=== PATIENT | male | born 1960 | race Caucasian/White ===

== ENCOUNTER 2016-10-25 12:00 | Inpatient (IN) | payer OTHER ==
--- NOTE | ~2016-10-25 | DS ---
Unit #: [id number] #: [id number] Patient: SANDY MORSE [id number] [facility] [address] [place] [address] [id number] MR#: [id number] NAME: SANDY MORSE ROOM: [facility] Age: 56 Sex: M Admission Date: 10/25/2016 : 1960 Discharge Date: 10/31/2016 Attending Physician: Star Diana M.D. Primary Care Physician: Primary Care Physician No DISCHARGE SUMMARY REASON FOR ADMISSION Mr. Morse is a 56-year-old man, who presented complaining of increasing hopelessness and helplessness following the of his mother 3 years ago this month. He had relapsed on substances and was unable to contract for safety. He was admitted for stabilization. DIAGNOSTIC STUDIES LABORATORY RESULTS: Please see hospital chart. HOSPITAL COURSE The patient was admitted and placed on the opioid detox protocol. He declined initiation of an antidepressant, but participated appropriately in dual diagnosis groups and activities and his suicidal ideation resolved during the weekend after his initial admission. He was able to contract for safety on the date of discharge, having completed detox with no significant problems. DISCHARGE DIAGNOSES AXIS I: Opioid dependence with withdrawal, uncomplicated; amphetamine abuse; depressive disorder, not otherwise specified. AXIS II: No diagnosis. AXIS III: History of migraine headaches. AXIS IV: AXIS V: DISCHARGE INSTRUCTIONS Follow up with CD-IOP at our facility and primary care physician. DISCHARGE MEDICATIONS None. CONDITION AT DISCHARGE Improved. PROGNOSIS Fair to good. DIET AND ACTIVITY Per primary care doctor. Dictated by... Unit #: [id number] #: [id number] Patient: SANDY MORSE En Floyd/kamron TD: 11/10/2016 03:04 JOB #: [id number] DISCHARGE SUMMARY Page 1 of 1 X Star Diana MD X DISCHARGE SUMMARY
--- NOTE | ~2016-10-25 | PN ---
Unit #: [id number] #: [id number] Patient: SANDY SANTIAGO [id number] [place] [address] [id number] MR#: [id number] NAME: SANDY SANTIAGO ROOM: 86 Age: 56 Sex: M Admission Date: 10/25/2016 : 1960 Attending Physician: Star Diana M.D. Admitting Physician: Star Diana M.D. Primary Care Physician: Primary Care Physician Nely FORBES NOTES DATE October 28, [address] Star Diana at [facility] DISCUSSION This patient was seen and assessed on October 28, 2016. Upon today's assessment, this patient was found abed, he currently reports no suicidal or homicidal ideation, and verbalizes no plan or intent. He reports medication compliance and still ahs complaints of novr-ny-upolvfix physical symptoms of withdrawal as evidenced by kxvf-jz-[id number] diffuse joint aches and pains, and nausea which he says is relieved by medications given to him for that. At this time he has no further complaints and we will continue to monitor him for suicidal ideation, and every fifteen minute checks for safety, and the detox protocol. Dictated by... CECE Garzon TD: 10/31/2016 07:13 JOB #: [id number] [facility] NOTES Page 1 of 1 X KIKI MCCORMICK PROGRESS NOTE
--- NOTE | ~2016-10-25 | PN ---
Unit #: [id number] #: [id number] Patient: SANDY SANTIAGO [id number] [facility] [address] [place] [address] [id number] MR#: [id number] NAME: SANDY SANTIAGO ROOM: 86 Age: 56 Sex: M Admission Date: 10/25/2016 : 1960 Attending Physician: Star Diana M.D. Admitting Physician: Star Diana M.D. Primary Care Physician: Primary Care Physician Nely CHAVES PROGRESS NOTES DATE OF SERVICE: 10/27/2016 DISCUSSION Upon today's assessment, the patient reports minimal to moderate signs and symptoms of heroin withdrawal at this time as evidenced by mild diffuse joint aches and pain and an upset stomach. He reports moderate depression, but denies suicidal ideation at this time. PLAN Continue to monitor the patient q.15 minutes for safety. Encourage participation in dual diagnosis groups, and continue to provide medications for withdrawal via the opioid detox protocol. Dictated by... Salima Mccormick APRN for En Floyd/kamron TD: 10/30/2016 23:34 JOB #: [id number] [facility] PROGRESS NOTES Page 1 of 1 X SALIMA MCCORMICK PROGRESS NOTE
--- NOTE | ~2016-10-25 | HP ---
Unit #: [id number] #: [id number] Patient: DILIP SANTIAGO [id number] [place] [address] [id number] MR#: [id number] NAME: DILIP SANTIAGO ROOM: 86 Age: 56 Sex: M Admission Date: 10/25/2016 : 1960 Attending Physician: Star Diana M.D. Admitting Physician: Star Diana M.D. Primary Care Physician: Primary Care Physician No HISTORY AND PHYSICAL HISTORY OF PRESENT ILLNESS Dilip is a 56 year old admitted to [facility] because of his polysubstance abuse which includes IV meth and heroin. PAST MEDICAL HISTORY 1. Long history of illicit substance abuse to include IV drugs. 2. History of migraines. PAST SURGICAL HISTORY Nothing reported. ALLERGIES Penicillin, Compazine. SOCIAL HISTORY Smokes 1 pack per day. Drinks alcohol on occasion. Admits to a long history of illicit substance abuse to include IV drugs. FAMILY HISTORY Medically noncontributory. REVIEW OF SYSTEMS CONSTITUTIONAL: No fever or chills. HEENT: Denies any sore throat, ear pain or runny nose. CARDIOVASCULAR: Denies chest pain, irregular heart rhythm or palpitations. CHEST: Denies shortness of breath or cough. No hemoptysis. GASTROINTESTINAL: Denies nausea, vomiting, diarrhea or chronic constipation. ENDOCRINE: Denies history of increased thirst or urination. No recent significant weight loss or gain. GENITOURINARY: Denies dysuria, frequency, or hematuria. SKIN: Denies any rashes. HEMATOLOGIC: Denies history of increased bleeding or bruising. MUSCULOSKELETAL: Denies any hot, swollen joints. No generalized muscle pain. NEUROLOGIC: Denies problems with vision or speech. No frequent, severe headaches. No numbness, tingling or weakness in any extremities. Denies loss of bladder or bowel control. CURRENT MEDICATIONS Detox protocol. PHYSICAL EXAMINATION Unit #: [id number] #: [id number] Patient: DILIP SANTIAGO GENERAL: Alert, well-nourished, in no apparent distress. VITAL SIGNS: Blood pressure 120/80, heart rate 77, respirations 16, temperature 98.6. WEIGHT: 196. HEIGHT: 6 feet 0 inches. SKIN: Warm and dry without rash or lesion. HEENT: Normocephalic. TMs not viewed. Oral and nasal passages clear. Conjunctivae clear. PERRLA. EOMs intact. NECK: Supple without lymphadenopathy or thyromegaly. HEART: Regular rate and rhythm without murmur. LUNGS: Clear. ABDOMEN: Soft, nontender. : Not done. EXTREMITIES: No evidence of cyanosis, clubbing or edema. Moves all without focal deficit. NEUROLOGICAL: Grossly within normal limits. Cranial Nerves: II: Visual garcia are intact. III, IV AND : Extraocular movements are intact. Pupils are equal, round and reactive to light. V: Facial sensation is grossly normal. VII: Facial movements and expression are normal. VIII: Auditory acuity grossly intact. IX, X: Uvula is midline. Phonation is normal. XI: Patient shrugs shoulders and turns head normally. XII: Tongue protrudes in the midline. Sensory and Motor Function: Sensory and motor sensation is grossly normal. Motor: moves all extremities well. Coordination: Gait is normal. Deep Tendon Reflexes: Intact. IMPRESSION Psychiatric admission. RECOMMENDATIONS PSYCHIATRIC: Per psychiatrist. MEDICAL: See no contraindication to participate in facility's activities. MEDICAL PROGNOSIS Good. MEDICAL CONDITION Stable. Dictated by... Mariama Lopez P.A.-C. for En Garcia/tamela TD: 10/25/2016 20:01 JOB #: [id number] Unit #: [id number] #: [id number] Patient: DILIP SANTIAGO HISTORY AND PHYSICAL Page 1 of 1 X Mariama Lopez HISTORY AND PHYSICAL
--- NOTE | ~2016-10-25 | PA ---
Unit #: [id number] #: [id number] Patient: SANDY MORSE [id number] [facility] [address] [place] [address] [id number] MR#: [id number] NAME: SANDY MORSE ROOM: 86 Age: 56 Sex: M Admission Date: 10/25/2016 : 1960 Date of Assessment: Attending Physician: Star Diana M.D. Admitting Physician: Star Diana M.D. Primary Care Physician: Primary Care Physician No PSYCHIATRIC ASSESSMENT DATE OF SERVICE 10/26/2016. INFORMANTS The patient, reliable. BÁRBARA, reliable. CHIEF COMPLAINT Suicidal ideation. HISTORY OF PRESENT ILLNESS Mr. Morse is a 56-year-old man, who reports this is the anniversary of his mother's birthday and says that he was with her when she . He has been doing drugs again including methamphetamines and heroin, and relapsed in July of this year. He had suicidal ideation and ongoing detox and was unable to contract for safety. He was readmitted for stabilization. PAST PSYCHIATRIC HISTORY Last admission in 2013 following the of his mother. He has a history of polysubstance dependence and depression. FAMILY PSYCHIATRIC HISTORY The patient reports an extensive family history of anxiety disorders. SOCIAL HISTORY The patient has completed his GED and works occasionally as a printer. He has one daughter, but currently stays alone. PAST MEDICAL HISTORY Significant for some chronic nausea. MEDICATIONS Please see MAR. ALLERGIES No known medication allergies. SUBSTANCE USE HISTORY The patient has a history of abusing opiates. MENTAL STATUS EXAMINATION The patient presented as a mildly disheveled man, who appeared his stated age. He was cooperative with the examination. His speech was spontaneous and easily understood. Musculoskeletal examination was calm. His mood Unit #: [id number] #: [id number] Patient: SANDY MORSE was depressed with a congruent affect. He was alert and fully oriented. Memory and concentration were fair. Thought processes were goal directed with no psychosis. He continued to report suicidal ideation and could not contract for safety out of the hospital. His insight and judgment were fair. His fund of knowledge and abstraction were fair. ASSETS AND LIABILITIES The patient is familiar with local resources and has supportive family. Liabilities include noncompliance with treatment and recent relapse. ADMITTING DIAGNOSES AXIS I: Opioid dependence, amphetamine abuse, substance-induced mood disorder, depressed. AXIS II: No diagnosis. AXIS III: Polysubstance withdrawal, history of migraine headaches. AXIS IV: AXIS V: PSYCHIATRIC PLAN The patient was admitted and placed on the detox protocol. He did not require initiation of an antidepressant per his interview, and he will enroll in dual-diagnosis groups and activities. Physical examination and laboratory studies will be ordered and reviewed. TREATMENT GOALS Resolution of SI, establishment of sobriety, improvement in insight, and improvement in coping skills. DISCHARGE PLANNING Follow up with CD-IOP. ESTIMATED LENGTH OF STAY 5 days. Dictated by... Star Diana M.D. ADRIANO/kamron TD: 11/10/2016 03:14 JOB #: [id number] PSYCHIATRIC ASSESSMENT Page 1 of 1 X Star Diana MD X PSYCHIATRIC ASSESSMENT
[2016-10-26 10:10] LABS: ALBUMIN SERUM 3.6 g/dL (3.5-5.0); BILIRUBIN,TOTAL 0.9 mg/dL (0.2-2.0); BUN/CREATININE RATIO 17.77; CALCIUM SERUM 8.9 mg/dL (8.4-10.2); CREATININE SERUM 0.9 mg/dL (0.6-1.4); GLOM FILT RATE Estimated 96.5 mL/min (>60); POTASSIUM 4.6 mmol/L (3.5-5.1)
[2016-10-31 09:48] LABS: URINE APPEARANCE CLEAR; URINE BILIRUBIN NEG (NEG); URINE BLOOD NEG (NEG); URINE COLOR YELLOW; URINE GLUCOSE NEG (NEG); URINE KETONE NEG (NEG); URINE LEUKOCYTE ESTERASE NEG (NEG); URINE NITRATE NEG (NEG); URINE PROTEIN NEG (NEG); URINE UROBILINOGEN 0.2 MG/DL (NEG)
[2016-10-31 10:24] LABS: AMPHETAMINE NEG (NEG); BARBITURATES NEG (NEG); BENZODIAZEPINES NEG (NEG); COCAINE NEG (NEG); MARIJUANA NEG (NEG); OPIATES NEG (NEG); TRICYCLIC ANTIDEPRESSANTS NEG (NEG); U METHADONE NEG (NEG)
== END 2016-10-31 13:32 | DRG 897 ==
LOC: P1E 14:18
PROVIDERS: Psychiatry & Neurology Psychiatry
PROC: HZ2ZZZZ Detoxification Services for Substance Abuse Treatment (ICD-10-PCS; principal; 2016-10-25)
DX: F11.23 Opioid dependence with withdrawal (principal); R45.851 Suicidal ideations; F33.1 Major depressive disorder, recurrent, moderate; F15.10 Other stimulant abuse, uncomplicated; Z88.0 Allergy status to penicillin; F17.210 Nicotine dependence, cigarettes, uncomplicated; F19.24 Other psychoactive substance dependence with psychoactive substance-induced mood disorder
CPT/HCPCS: 80053; 80307; 81003; 86592